=== PATIENT | female | born 1980 | race Caucasian/White ===

== ENCOUNTER 2017-02-14 18:23 | Emergency (ER) | payer BC ==
[~2017-02-14] VITALS: Ht 157.5 cm; Wt 67.1 kg
[~2017-02-14 18:23] MED LIST: IRON TABLETS325 MG PO; PRENATAL PLUS1 TA1 PO; TYLENOL ES500 MG PO; ZANTAC 150150 MG PO
[2017-02-14] MEDS ORDERED: TESSALON PERLE100 M1 PO (19:18)
[2017-02-14] MEDS ORDERED: ZITHROMAX Z-PA250 M2 PO (19:18)
--- NOTE | 2017-02-14 19:19 | [facility] Report ---
History of Present Issue Date/Time Seen by Provider 02/14/17 191 Visit Reason Pt arrived:Walked Presenting Problem:PT STATES HEADACHE, COUGH, SORE THROAT, BODY ACHES, RUNNY NOSE AND FEVER FOR PAST THREE DAYS. Location if Accident: Onset of symptoms date/time:/ or onset unknown for:MEDICAL HX UNKNOWN Have you (or family members/close friends) recently traveled outside the [place]? N If Yes, where/when: Have you had exposure to infectious disease within the past month? TB? Other? Specify: Source patient Exam Limitations no limitations Comment 36-year-old female presents today with a fever, sore throat,danielle and body aches all over x3 days. Patient states she had strep in the past that made her feel like this. Patient reports cough but unable to cough anything up. Patient denies flu vaccine or any ill contacts patient reports being a smoker. ALLERGIES Coded Allergies: No Known Allergies (02/14/17) History Medical History General CAD? No Angina: No [place]: No Hypertension? No Hyperlipidemia? No CHF? No DVT? No PE? No COPD? No Asthma? No Anemia? No GERD? No Gastric ulcers? No GI Bleed? No Hernia? No Thyroid Problems? No Hypothyroidism? No CVA? No Seizures? No Diabetes? No Renal Insuffiency? No UTI? No Stones? No BPH? No GB Disease: Yes Nephritic Syndrome? No Asplenia? No Hepatitis? No Sickle Cell Disease? No Arthritis? No Migraines? No Cataracts? No Glaucoma? No MRSA? No HIV? No TB? No Anxiety? No Depression? No Cancer? 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 Respiratory see HPI, cough Physical Exam Vital Signs Vital Signs Date Time Temp Pulse Resp B/P Pulse O2 O2 Flow FiO2 Ox Delivery Rate 02/14 1833 100.0 107 18 148/95 100 - WBC >12,000 or <4,000 or 10% bands? 2 or more SIRS Criteria Met? B/P:148/95 MAP:112 Creatinine >2.0? UA output<0.5ml/kg/hr for 2 hrs? Platelet count >100,000? Lactate >2.0mmol/1? INR >1.2 or PTT > than 60 sec? Evidence of Organ Dysfunction? Provider documented clinical suspician of infection? Sepsis Criteria Count: 1 Sepsis Risk: General Appearance normal appearance, mild distress Eye Exam - bilateral eye normal exam, bilateral eye PERRL, bilateral eye EOMI Ear, Nose, Throat normal ENT inspection, pharyngeal erythema, tonsillar exudate Neck normal inspection, full range of motion Respiratory Status Yes: trachea midline, chest symmetrical, non tender chest. No: respiratory distress. Lung Sounds left: normal breath sounds, lungs clear. right: wheezing. Cardiovascular normal exam, regular rate/rhythm Neurologic alert, corrections officer II-XII nml as tested, oriented x 3 Medical Decision Making LABS/Meds/Orders Pt receiving controlled substance in ED? No Results/Orders Laboratory Tests 02/14/171847: Group A Strep Screen NOT DETECTED 02/14/17 183: Influenza Type A Ag NOT DETECTED, Influenza Type B Ag NOT DETECTED Current Medication Orders Sig/Rose Mary Start time Last Medication Dose Route Stop Time Status Admin Ceftriaxone Sodium 1 GM ONCE ONE 02/14 1915 DC 02/14 IM 02/14 Dexamethasone Sodium 4 MG ONCE ONE 02/14 1915 DC 02/14 Phosphate IM 02/14 Lidocaine HCl 0 ONCE ONE 02/14 1915 DC 02/14 IM 02/14 Ceftriaxone Sodium 0 .STK-MED ONE 02/15 1912 DC .ROUTE Lidocaine HCl 0 .STK-MED ONE 02/15 1912 DC IJ Dexamethasone Sodium 0 .STK-MED ONE 02/14 1911 DC Phosphate .ROUTE Ibuprofen 400 MG ONCE ONE 02/14 1845 DC 02/14 PO 02/14 Ibuprofen 0 .STK-MED ONE 02/14 1841 DC PO Orders Procedure Date/time Status UTC STREP SCREEN 02/15 1848 Complete UT FLU A,B 02/14 1837 Complete Departure Departure Time of Disposition 1913 Disposition DC Home or Self Care(routine) Clinical Impression Primary Impression: Acute tonsillitis Qualifiers: Pharyngitis/tonsillitis etiology: unspecified etiology Qualified Code: J03.90 - Acute tonsillitis, unspecified Secondary Impressions: Cough Condition STABLE Referrals Ihsan Barber MD (Family) Patient Instructions DI for Pharyngitis/Tonsillopharyngitis -- Adult, Sore Throat Additional Instructions Tylenol Motrin as needed for pain,fever and discomfort. Salt water gargle every 2 as needed. Smoking sensation. Follow-up with PCP on Thursday return to clinic or ER for any concerns or if symptoms worsening. Contact precautions discussed Discharge Counseling Counseled pt/family regarding diagnosis, test results, home care, follow up needs Prescriptions Current Visit Scripts Azithromycin (Zithromax) 250 MG PO DAILY #6 TAB USE DIRECTED. Benzonatate (Tessalon Perle) 100 MG PO BIDP PRN cough 3 Days at 1933
[2017-02-14 19:38] VITALS: BP 148/95
== END 2017-02-14 19:38 | disposition home or self-care (01) ==
LOC: UTC 18:23
DX: J03.90 Acute tonsillitis, unspecified (principal); R05 Cough